=== PATIENT | female | born 2000 ===

== ENCOUNTER 2020-10-02 10:28 | Outpatient (REF) | payer OTHER, SELFPAY ==
--- NOTE | ~2020-10-02 | XR_ITS ---
EXAMINATION: XR CERVICAL SPINE CLINICAL INFORMATION: Chronic neck pain COMPARISON: None TECHNIQUE: 3 views of the cervical spine were obtained. FINDINGS: There is mild straightening of cervical lordosis. The vertebral heights, alignment and disc heights are normal. The neural foramina are patent bilaterally. No visible acute fracture, dislocation or lytic process seen. The prevertebral soft tissues are normal. XR/XR cervical spine 4V IMPRESSION: Unremarkable cervical spine exam.
== END 2020-10-02 10:29 | disposition home or self-care (01) ==
LOC: HO.XRAY 10:28
PROVIDERS: Visit Provider Psychiatry & Neurology Neurology
DX: M54.2 Cervicalgia (principal)
CPT/HCPCS: 72050

== ENCOUNTER 2021-05-19 11:10 | Emergency (ER) | payer OTHER, SELFPAY ==
--- NOTE | ~2021-05-19 | XR_ITS ---
EXAMINATION: 1. Radiographs left elbow 2. Radiographs left hand CLINICAL INFORMATION: Pain COMPARISON: None TECHNIQUE: 3 views of the left elbow and 4 views of the left hand were obtained. FINDINGS: Left elbow: No fracture or dislocation of the left elbow. No joint effusion. No focal soft tissue swelling. No appreciable degenerative changes. No radiopaque foreign body. Left hand: Visualized portion of the distal radius and ulna demonstrate no fracture. Carpal rows are maintained. No carpal bone fracture. No metacarpal or phalangeal fracture. No appreciable degenerative changes of the left hand. No focal soft tissue swelling. No radiopaque foreign body. XR/XR hand wrist LT IMPRESSION: Unremarkable radiographs of the left elbow and left hand.
--- NOTE | ~2021-05-19 | XR_ITS ---
EXAMINATION: 1. Radiographs left elbow 2. Radiographs left hand CLINICAL INFORMATION: Pain COMPARISON: None TECHNIQUE: 3 views of the left elbow and 4 views of the left hand were obtained. FINDINGS: Left elbow: No fracture or dislocation of the left elbow. No joint effusion. No focal soft tissue swelling. No appreciable degenerative changes. No radiopaque foreign body. Left hand: Visualized portion of the distal radius and ulna demonstrate no fracture. Carpal rows are maintained. No carpal bone fracture. No metacarpal or phalangeal fracture. No appreciable degenerative changes of the left hand. No focal soft tissue swelling. No radiopaque foreign body. XR/XR elbow LT 2V IMPRESSION: Unremarkable radiographs of the left elbow and left hand.
[2021-05-19 11:21] VITALS: BP 114/64; PULSE 76; RESP 16; TEMP 36.5; BMI 21.2
--- NOTE | 2021-05-19 12:15 | ED.EXTPRO ---
HPI - Extremity Problem General Chief complaint: Extremity Problem Stated complaint: Wrist pain Time Seen by Provider: 05/19/21 12:08 Source: patient Mode of arrival: ambulatory Limitations: no limitations History of Present Illness HPI Narrative: 20-year-old female came in for evaluation of left wrist pain for the past 3 months. 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 Patient describes the pain as electrical pain shooting down to the left hand. Related Data Allergies Allergy/AdvReac Type Severity Reaction Status Date / Time No Known Allergies Allergy Verified 05/19/21 11:28 Review of Systems Review of Systems: All other systems are reviewed and are negative Constitutional: Reports as per HPI and Reports no additional constitutional complaints Eyes: Reports as per HPI and Reports no additional eye complaints Reports system reviewed and no additional complaints, except as documented Cardiovascular: Reports as per HPI and Reports no additional cardiovascular complaints Respiratory: Reports as per HPI and Reports no additional respiratory complaints Gastrointestinal: Reports as per HPI and Reports no additional gastrointestinal complaints Genitourinary: Reports no additional female genitourinary complaints Musculoskeletal: Reports no additional musculoskeletal complaints Skin/Breast: Reports system reviewed and no additional complaints, except as docu Psychiatric: Reports no additional psychiatric complaints Endocrine: Reports no additional endocrine complaints Hematologic/Lymphatic: Reports no additional hematologic/lymphatic complaints Allergic/Immunologic: Reports no additional allergic/immunologic complaints Reports system reviewed and no additional complaints, except as documented and Reports Abnormal speech present [facility] Past Medical History Medical History Seizure Social History Social History Advance Directives: No Advance Directives Information Provided: No Patient : No Physical Exam Vital Signs: Vital Signs: Last Vital Signs Temp 97.7 F 05/19/21 11:21 Pulse 76 05/19/21 11:21 Resp 16 05/19/21 11:21 BP 114/64 05/19/21 11:21 Body Mass Index 21.2 Vital signs have been reviewed as appeared to be correct. Blood pressure normal. Heart rate normal. Respiration rate normal. Temperature normal. Oxygen saturation normal. Appearance: Alert. Oriented X3. No acute distress. Head: Normal external exam. Normocephalic. Atraumatic. No Doherty signs noted. No raccoon eyes noted Eyes: PERRLA. EOMI. Conjunctiva and sclera normal. Eyelids normal. ENT: TM's Normal. Pharynx normal. Uvula midline. Moist mucous membranes. No trismus noted. No drooling noted. No muffled voice noted. Neck: Normal inspection. Neck supple. FROM. No adenopathy. Thyroid Normal. No meningeal signs. No neck mass noted. CVS: Normal heart rate and rhythm. Heart sound normal. No murmurs noted. Pulses normal throughout. Respiratory: No respiratory distress. Painless inspiration. Breath sounds normal. No wheezes/rales/rhonchi noted. Chest nontender. No accessory muscle usage noted or decreased air movement noted. Abdomen: Soft and nontender. Bowel sounds normal in all 4 quadrants. No distention noted. No organomegaly noted. No visible injury noted. Back: No CVA tenderness. Full range of motion noted. Skin: Skin warm and dry. Normal skin color. Normal skin turgor. No rashes/lesions/lacerations noted. Extremities: Right hand/right wrist exam: No deformity, no step-off, the focal tenderness over medial aspect of the left wrist, increased pain with over extending the left rest, worsening by tapping on the wrist causing left trickle shooting pain to the hand. Neuro: Oriented X 3. Cranial nerve exam: II-XII are grossly intact No motor deficit. No sensory deficit. Reflexes normal. Course Course Course Narrative: Assessment and plan. Left wrist pain likely left wrist carpal tunnel syndrome. rest, wrist brace, NSAIDs, follow up with Ortho. MDM - Extremity (Nontraumatic) Imaging Data Left elbow/left hand/left wrist x-ray: Radiologist's impression: Unremarkable radiographs of the left elbow and left hand. Discharge Plan Discharge Clinical Impression: Carpal tunnel syndrome Qualifiers: Laterality: left Qualified Code(s): G56.02 - Carpal tunnel syndrome, left upper limb Patient Disposition: Home, Self-Care Instructions: Carpal Tunnel Surgery (DC) Referrals: Jessica Ball MD [Physician] - 2 days
== END 2021-05-19 13:08 | disposition home or self-care (01) ==
PROVIDERS: Emergency Provider Emergency Medicine; PCP Pediatrics
DX: M25.532 Pain in left wrist (principal); G56.02 Carpal tunnel syndrome, left upper limb; Z79.899 Other long term (current) drug therapy
CPT/HCPCS: 73070; 73110; 73130; 99283

== ENCOUNTER → 2021-07-29 12:29 | Outpatient (BNVA) | payer MEDICAID, SELFPAY | PROVIDERS: PCP Pediatrics; Visit Provider Orthopaedic Surgery | DX: G56.02 Carpal tunnel syndrome, left upper limb (principal); M79.642 Pain in left hand | CPT/HCPCS: 99202 ==

== ENCOUNTER 2021-09-26 08:33 | Outpatient (REF) | payer BC, SELFPAY ==
[2021-09-26 11:35] LABS: Hematocrit 37.7 % (37.0-47.0); Hemoglobin 12.2 g/dl (12.0-16.0); Mean Corpuscular HGB Conc 32.4 g/dl (31.0-35.0); Mean Corpuscular Hemoglobin 31.1 pg (27.0-33.0); Mean Corpuscular Volume 96.2 fL (80.0-98.0); Mean Platelet Volume 11.3 fL (9.4-12.3); Platelet Count 327 X10*3/uL (160-400); Red Blood Count 3.92 X10*6/uL (4.20-5.50); Red Cell Distribution Width 12.6 % (11.0-16.0); White Blood Count 9.2 X10*3/uL (4.8-10.8)
[2021-09-26 12:11] LABS: TSH reflex Free T4 1.66 uIU/mL (0.32-4.0)
[2021-09-26 12:15] LABS: Alanine Aminotransferase 13 U/L (0-31); Alkaline Phosphatase 89 U/L (39-117); Anion Gap 14 (12-20); Aspartate Amino Transferase 17 U/L (5-31); Bilirubin Total 0.3 mg/dL (0.0-1.0); Blood Urea Nitrogen 9 mg/dL (9-16); Calcium 9.3 mg/dL (8.4-10.2); Carbon Dioxide 25 mmol/L (22-29); Chloride 106 mmol/L (96-108); Cholesterol 121 mg/dL; Estimated Glomerular Filt Rate > 60; Glucose Fasting 85 mg/dL (60-99); HDL Cholesterol 57 mg/dL; LDL Cholesterol Calculated 55 mg/dl; Potassium 4.7 mmol/L (3.3-5.1); Sodium 140 mmol/L (135-145); Total Protein 6.4 g/dL (6.5-8.0); Triglycerides 48 mg/dL
[2021-09-26 12:29] LABS: Vitamin B12 311 pg/mL (200-900)
== END 2021-09-26 08:34 | disposition home or self-care (01) ==
LOC: HO.WFDLDS 08:33
PROVIDERS: Visit Provider Hospitalist
DX: Z00.00 Encounter for general adult medical examination without abnormal findings (principal); Z86.2 Personal history of diseases of the blood and blood-forming organs and certain disorders involving the immune mechanism
CPT/HCPCS: 36415; 80053; 80061; 82607; 82746; 84443; 85027

== ENCOUNTER 2021-12-03 11:15 | Outpatient (RCR) | payer BC, SELFPAY ==
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
--- NOTE | 2021-11-20 14:48 | PC.NURSE ---
Case opened in treatment team
--- NOTE | 2021-11-24 11:14 | P.PNPSP_ITS ---
Subjective Subjective Date of Service: 11/24/21 Reason For Visit: bipolar II Guardianship: No Medical Problems Affecting Mental Status: No Interim History: Describes mood as okay , states it gets better as the day goes on . No SI/HI/SIB repored, no safety concerns. States current medication regimen appears to be helping, has had recent increase in duloxetine dose, approximately 3 to 4 weeks ago. Would prefer to wait before increasing any further. Medication Compliance: Yes Side effects from medications: No Attending Groups: Yes Review of Systems Acute medical concerns: No Review of Systems Review of Systems Yes all other systems are reviewed and are negative Constitutional: Reports no additional constitutional complaints Mental Status Exam Mental Status Exam Narrative: NAD Patient Appearance: Well Grooomed and Appropriate Patient Orientation: Person, Place, Time and Situation Level of Consciousness: Awake, Appropriate and Alert Patient Behavior: Appropriate, Cooperative and Good Eye Contact Mood Description: Appropriate Affect Description: Depressed and Anxious Patient Cognition Impaired: No Ability to Follow Directions: Good Speech Pattern: Clear, Appropriate, Coherent and Soft-Spoken Memory Description: Intact Hallucinations: None Delusions: Not Present Thought Process: Intact Thought Content: positive for Intact Depressive Symptoms: Increased Anxiety, Loss of Int. in Activity, Hopelessness, Unhappiness, Increased Fatigue, Thoughts of /Suicide and Difficulty Concentrating Judgement: Fair Assessment & Plan Assessment & Plan (1) Bipolar II disorder: Status: Acute Code(s): F31.81 - Bipolar II disorder Assessment and Plan: Describes mood as okay . No SI/HI/SIB reported. States has difficulty with the season, as summer is coming on, but overall feels she is okay . Feels lamictal is helping. Satisfied with current dose for now. (2) Depression with anxiety: Status: Acute Code(s): F41.8 - Other specified anxiety disorders Assessment and Plan: Discussed cymbalta dose. Had increase 3 to 4 weeks ago. Says she continues with a level of dep/anxiety, but would rather wait before another dose increase, as my body adjusts . (3) Generalized anxiety disorder: Status: Acute Code(s): F41.1 - Generalized anxiety disorder Assessment and Plan: Overall feeling less anxious, although still present. Plan 1. Continue with current PHP plan of care. 2. Continue with current medications as prescribed. 3. Follow-up as per protocol. Patient educated on: diagnosis, medication risk/benefits and therapeutic strategies Informed Consent: understands Reason for contiued partial hosp. stay Substantial Risk for: harm to self, inability to function and med/psych decomp ensation Certification I certify that partial hospital treatment is medically necessary due to the symptoms and problems resulting from the patient's mental illness and the failure to treat the patient at the partial hospital level of care would likely result in the patient requiring inpatient psychiatric care which could not be prevented at a less intensive level of care. I spent minutes with the patient and/or on the patient floor today, greater than?50% of which was spent counseling/coordinating care. Discharge Plan Discharge Attending provider: Shan Camp Medications: No Action lamotrigine [Lamictal] 100 mg Tablet 100 mg PO DAILY 0RF Rx Instructions: Take at bedtime lamotrigine [Lamictal] 200 mg Tablet 200 mg PO DAILY 0RF Rx Instructions: Take every morning duloxetine [Cymbalta] 20 mg Capsule,Delayed Release(Dr/Ec) 40 mg PO BEDTIME 0RF duloxetine [Cymbalta] 20 mg Capsule,Delayed Release(Dr/Ec) 20 mg PO DAILY 0RF Rx Instructions: Take every morning Telehealth Telehealth Location of provider rendering services: practice address Location of patient: address on file Patient Identification confirmed using: Name, : Yes Telehealth method: video Patient verbally consented to treatment: Yes Patient verbally consented to billing insurance company: Yes Patient informed of any privacy concerns related to visit: Yes Minutes spent on Phone/Video with Pt.: 15
[2021-11-27 08:30] VITALS: BMI 20.2
--- NOTE | 2021-11-27 15:09 | P.PNPSP_ITS ---
Subjective Subjective Date of Service: 11/27/21 Reason For Visit: bipolar II Guardianship: No Medical Problems Affecting Mental Status: No Interim History: States ?I am doing okay today?. Coptinues with dysphoric mood and anxiety, although improving. States working on taking medications consistently daily, and with food. No SI/HI/SIB reported, no safety concerns at this time. Medication Compliance: Yes Side effects from medications: No Attending Groups: Yes Review of Systems Acute medical concerns: No Medical Review of Systems: unchanged Review of Systems Review of Systems Yes all other systems are reviewed and are negative Constitutional: Reports no additional constitutional complaints Mental Status Exam Mental Status Exam Narrative: NAD Patient Appearance: Well Grooomed and Appropriate Patient Orientation: Person, Place, Time and Situation Level of Consciousness: Awake, Appropriate and Alert Patient Behavior: Appropriate, Cooperative and Good Eye Contact Mood Description: Appropriate Affect Description: Depressed Patient Cognition Impaired: No Ability to Follow Directions: Good Speech Pattern: Clear, Appropriate, Coherent and Soft-Spoken Memory Description: Intact Hallucinations: None Delusions: Not Present Thought Process: Intact Thought Content: positive for Intact Depressive Symptoms: Increased Anxiety, Loss of Int. in Activity, Unhappiness, Increased Fatigue and Difficulty Concentrating Judgement: Fair Assessment & Plan Assessment & Plan (1) Generalized anxiety disorder: Status: Acute Code(s): F41.1 - Generalized anxiety disorder Assessment and Plan: Reports overall less anxiety. Continues to take medications as prescribed. (2) Bipolar II disorder: Status: Acute Code(s): F31.81 - Bipolar II disorder Assessment and Plan: Reports continues with dysphoric mood, although improving. States she is working consistently and taking medications daily at appropriate times, and with foods. Reports she is looking for therapist. Informed her that her clinician here could provide information. I also provided her with information regarding psychology doctor [facility], and she states she will begin looking there. She was also encouraged to reach out to her insurance company for providers in the area that except her insurance. She stated that she would do this. No SI/HI/SIB reported, no safety concern at this time. Does not feel she needs any type of medication changes at this time. Plan 1. Continue with current PHP plan of care. 2. Continue with current medication regimen as prescribed by outpatient provider. 3. Follow-up as per protocol. Patient educated on: diagnosis, medication risk/benefits and therapeutic strategies Informed Consent: understands Reason for contiued partial hosp. stay Substantial Risk for: harm to self, inability to function and med/psych decompensation Certification I certify that partial hospital treatment is medically necessary due to the symptoms and problems resulting from the patient's mental illness and the fail ure to treat the patient at the partial hospital level of care would likely result in the patient requiring inpatient psychiatric care which could not be prevented at a less intensive level of care. I spent minutes with the patient and/or on the patient floor today, greater than?50% of which was spent counseling/coordinating care. Discharge Plan Discharge Attending provider: Shan Camp Medications: No Action lamotrigine [Lamictal] 100 mg Tablet 100 mg PO DAILY 0RF Rx Instructions: Take at bedtime lamotrigine [Lamictal] 200 mg Tablet 200 mg PO DAILY 0RF Rx Instructions: Take every morning duloxetine [Cymbalta] 20 mg Capsule,Delayed Release(Dr/Ec) 40 mg PO BEDTIME 0RF duloxetine [Cymbalta] 20 mg Capsule,Delayed Release(Dr/Ec) 20 mg PO DAILY 0RF Rx Instructions: Take every morning Telehealth Telehealth Location of provider rendering services: practice address Location of patient: address on file Patient Identification confirmed using: Name, : Yes Telehealth method: video Patient verbally consented to treatment: Yes Patient verbally consented to billing insurance company: Yes Patient informed of any privacy concerns related to visit: Yes Minutes spent on Phone/Video with Pt.: 15
--- NOTE | 2021-11-28 15:45 | PC.ADMIT ---
Late admission note for 11/20/2021 21 year old patient admitted to [facility] on 11/20/2021. Patient referred by her PCP, Bruna Sewell DNP. Patient reported increased depression and anxiety over the last month. States i've been too depressed for too long Patient has lost motivation for personal care, having nightmares and SI without plan or intent. Patient denies hx of suicidal attempts, does report self harming behaviors hx of cutting. No hx of in-patient hospitalizations. Patient denies substance abuse does report daily use of marijuana at night for sleep and pain. Patient is cooperative during nursing assessment and verbally agrees to complete assessment via telehealth. Patient denies SI and HI with no plan or intent. Medications reconciled with pharmacy and patient. Medication teaching done, patient verbalizes understanding.
--- NOTE | 2021-12-03 12:08 | HO.PHPPROGNO ---
Subjective Subjective Date of Service: 12/03/21 Reason For Visit: bipolar II Guardianship: No Medical Problems Affecting Mental Status: No Interim History: States I'm okay, I'm tired . Feels less depressed, less anxious. No SI/HI/SIB reported, no safety concerns. Has found PHP helpful. Looking forward to an upcoming vacation. Somewhat anxious about finding a therapist, has been working with [facility] clinician to locate one that accepts her insurance. Medication Compliance: No Side effects from medications: No Attending Groups: Yes Review of Systems Acute medical concerns: No Medical Review of Systems: unchanged Review of Systems Review of Systems Yes all other systems are reviewed and are negative Constitutional: Reports no additional constitutional complaints Mental Status Exam Mental Status Exam Narrative: NAD Patient Appearance: Well Grooomed and Appropriate Patient Orientation: Person, Place, Time and Situation Level of Consciousness: Awake, Appropriate and Alert Patient Behavior: Appropriate, Cooperative and Good Eye Contact Mood Description: Calm and Appropriate Affect Description: Calm and Appropriate Patient Cognition Impaired: No Ability to Follow Directions: Good Speech Pattern: Clear, Appropriate, Coherent and Soft-Spoken Memory Description: Intact Hallucinations: None Delusions: Not Present Thought Process: Intact Thought Content: positive for Intact Depressive Symptoms: Increased Fatigue and Difficulty Concentrating Judgement: Fair Diagnostics Vital Signs (24Hr): BMI result Body Mass Index 20.2 Assessment & Plan Assessment & Plan (1) Generalized anxiety disorder: Status: Acute Code(s): F41.1 - Generalized anxiety disorder Assessment and Plan: States I'm okay, I'm tired . Feels less depressed, less anxious. No SI/HI/SIB reported, no safety concerns. Has found PHP helpful. Looking forward to an upcoming vacation. Reports feeling somewhat anxious about finding a therapist, has been working with [facility] clinician to locate one that accepts her insurance. Reports that she plans to resume school and some type of work after vacation. Expressed concern regarding ability to pay attention / concentrate. States that she has been diagnosed with ADD in the past, would like to discuss medications. We reviewed several medications, including Wellbutrin, stimulants, Strattera. I did advise her that due to her seizures, she would really not be suitable for Wellbutrin or stimulants at this time. I did suggest that she follow up with her outpatient provider regarding possible trial of Strattera in the future. She stated that she would read about medication and discuss it with her primary care provider, as they prescribe her medications at this time. She was able to express hope for the future, and feels she has gained some skills while here. (2) Bipolar II disorder: Status: Acute Code(s): F31.81 - Bipolar II disorder Plan 1. Patient appears stable for discharge from [facility] at this time. 2. Patient to continue current medications as prescribed by her primary care provider. Patient educated on: diagnosis, medication risk/benefits and therapeutic strategies Informed Consent: understands Reason for contiued partial hosp. stay Substantial Risk for: stable for discharge Certification I certify that partial hospital treatment is medically necessary due to the symptoms and problems resulting from the patient's mental illness and the failure to treat the patient at the partial hospital level of care would likely result in the patient requiring inpatient psychiatric care which could not be prevented at a less intensive level of care. I spent minutes with the patient and/or on the patient floor today, greater than?50% of which was spent counseling/coordinating care. Discharge Plan Discharge Attending provider: Shan Camp Medications: No Action lamotrigine [Lamictal] 100 mg Tablet 100 mg PO DAILY 0RF Rx Instructions: Take at bedtime lamotrigine [Lamictal] 200 mg Tablet 200 mg PO DAILY 0RF Rx Instructions: Take every morning duloxetine [Cymbalta] 20 mg Capsule,Delayed Release(Dr/Ec) 40 mg PO BEDTIME 0RF duloxetine [Cymbalta] 20 mg Capsule,Delayed Release(Dr/Ec) 20 mg PO DAILY 0RF Rx Instructions: Take every morning Stand Alone Forms: Patient Portal Discharge page Telehealth Telehealth Location of provider rendering services: practice address Location of patient: address on file Patient Identification confirmed using: Name, : Yes Telehealth method: video Patient verbally consented to treatment: Yes Patient verbally consented to billing insurance company: Yes Patient informed of any privacy concerns related to visit: Yes Minutes spent on Phone/Video with Pt.: 15
--- NOTE | 2021-12-03 13:50 | PC.NURSE ---
Patient is scheduled to discharge from [facility] today. Patient reports she does not know how she feels about discharge however she is going away on vacation next week. Patient denied SI or any safety concerns. Reviewed patient medications with patient. Medication education provided. Patient reports taking medications as prescribed.
== END 2021-12-03 23:59 | disposition home or self-care (01) ==
LOC: HO.PHPA 11:15
PROVIDERS: Visit Provider Psychiatry & Neurology Psychiatry
DX: F31.81 Bipolar II disorder (principal); F41.1 Generalized anxiety disorder; F41.8 Other specified anxiety disorders; Z79.899 Other long term (current) drug therapy
CPT/HCPCS: 90791; 90853

== ENCOUNTER 2022-10-09 09:56 | Outpatient (REF) | payer BC, SELFPAY ==
[2022-10-09 12:02] LABS: Hematocrit 39.6 % (37.0-47.0); Hemoglobin 13.4 g/dl (12.0-16.0); Mean Corpuscular HGB Conc 33.8 g/dl (31.0-35.0); Mean Corpuscular Hemoglobin 31.2 pg (27.0-33.0); Mean Corpuscular Volume 92.1 fL (80.0-98.0); Mean Platelet Volume 11.9 fL (9.4-12.3); Platelet Count 296 X10*3/uL (160-400); Red Cell Distribution Width 12.2 % (11.0-16.0); White Blood Count 5.7 X10*3/uL (4.8-10.8)
[2022-10-09 12:59] LABS: Alanine Aminotransferase 9 U/L (0-31); Albumin Level 4.5 g/dL (3.5-5.0); Alkaline Phosphatase 82 U/L (39-117); Anion Gap 12 (12-20); Aspartate Amino Transferase 14 U/L (5-31); Bilirubin Total 0.8 mg/dL (0.0-1.0); Blood Urea Nitrogen 8 mg/dL (9-16); Calcium 9.3 mg/dL (8.4-10.2); Carbon Dioxide 24 mmol/L (22-29); Chloride 108 mmol/L (96-108); Estimated Glomerular Filt Rate > 60; Glucose Fasting 80 mg/dL (60-99); Potassium 4.3 mmol/L (3.3-5.1); Sodium 140 mmol/L (135-145); Total Protein 6.9 g/dL (6.5-8.0)
[2022-10-09 13:01] LABS: TSH reflex Free T4 1.36 uIU/mL (0.32-4.0)
== END 2022-10-09 09:57 | disposition home or self-care (01) ==
LOC: HO.WFDLDS 09:56
PROVIDERS: Visit Provider Hospitalist
DX: R63.6 Underweight (principal); F31.81 Bipolar II disorder; R56.9 Unspecified convulsions; Z86.2 Personal history of diseases of the blood and blood-forming organs and certain disorders involving the immune mechanism
CPT/HCPCS: 36415; 80053; 84443; 85027

== ENCOUNTER 2023-11-09 16:47 | Outpatient (AMB) | payer BC, SELFPAY ==
[2023-11-09 16:53] VITALS: BP 108/68; BMI 19.1
--- NOTE | 2023-11-09 16:53 | MHC.PC.OV ---
Vital Signs 11/09/23 16:53 Height 5 ft 3 in Weight 108 lb BMI 19.1 BP 108/68 Blood Pressure Location Lt brachial Position Sitting Intake Visit Reasons: TC SV/iron deficiency Cassandra Consultant Required: No Accompanied by: Self / Same As Patient Allergies No Known Allergies Allergy (Verified 11/09/23 17:07) Medication List - Last Reconciled 11/09/23 by Danae Beltran MD duloxetine 20 mg PO TID zonisamide 100 mg PO BID Tobacco use date assessed: 11/09/23 Dental Screening Dental Screen Date: 11/09/23 Did you have a dental visit in the last 12 months?: Yes Did you have a dental problem in the last 6 months where you did not have access to dental care?: No Was dental information given to patient?: Patient has dentist HPI HPI Comments History of Present Illness Details This is a 23-year-old female with seizure disorder that complains of a chronic cough that has been present for about 4 weeks after she had a cold. She was wheezing when she had the cold but not anymore. The cough is productive with green sputum as per patient. Lungs are clear. Chest x-ray will be order along with pulmonary function test and referral to pulmonology. Seizure disorder is follow by [facility]. [facility] Medical History (Updated 11/09/23 @ 17:29 by Danae Beltran MD) Bipolar II disorder Epilepsy Seizure Surgical History Hx of appendectomy Family History Sister Asthma Mental disorder Father Mental disorder Mother Mental disorder Social History Household Members: Family Household Members Other:: dad and stepmom Housing: House Alcohol intake: former Patient Tobacco Use Status: Never used Tobacco e-Cigarette/Vaping Use: Never Used Second Hand Smoke Exposure: No service: No Current occupational status: employed Current occupation: rt hand/receptionist telephone operator Cognitive needs: No Hearing needs: No Vision needs: Yes Questionnaire PHQ-9 Over the last 2 weeks, how often have you been bothered by any of the following problems? 1. Little interest or pleasure in doing things: not at all 2. Feeling down, depressed, or hopeless: not at all 3. Trouble falling or staying asleep, or sleeping too much: not at all 4. Feeling tired or having little energy: not at all 5. Poor appetite or overeating: not at all 6. Feeling bad about yourself - or that you are a failure or have let yourself or your family down: not at all 7. Trouble concentrating on things, such as reading the newspaper or watching television: not at all 8. Moving or speaking so slowly that other people could have noticed. Or the opposite - being so fidgety or restless that you have been moving around a lot more than usual: not at all 9. Thoughts that you would be better off or of hurting yourself in some way: not at all Total score: 0 Depression Screening Interpretation: Negative Depression Screening Done: Yes 64819 - PHQ-9 Billing: Yes Source: Developed by Drs. Osei Suarez, Sheeba Walters, Jeovanny Fournier and colleagues, with an educational precious from [employer]. Thrive Questionnaire Date Thrive assessed: 11/09/23 I am a: Patient What is your living situation today?: I have a steady place to live Within the past 12 months, did the food you bought not last and you didn't have the money to get more?: Never true Within the past 12 months, did you worry whether your food would run out before you got money to buy more?: Never true Do you have trouble paying for medicines?: No Do you have trouble getting transportation to medical appointments?: No Do you have trouble paying your heating and electricity bill?: No Do you have trouble taking care of your child, family member or friend?: No Do you have trouble with day-to-day activities such as bathing, preparing meals, shopping, managing finances, etc.?: No Are you currently unemployed and looking for a job?: No Are you interested in more education?: No Please select the resources that you would like help with: None Currently or been in a relationship where the following occur: no concerns reported THRIVE Score: 0 AUDIT C Alcohol Use Questionnaire (AUDIT-C) 1. How often do you have a drink containing alcohol?: Never Total Score: 0 Score Reviewed/Action Taken: No AMERICA-7 AMB Questionnaire AMERICA-7 Date AMERICA - 7 assessed: 11/09/23 Feeling nervous, anxious, or on edge: 0 = Not at all Not being able to stop or control worryin = Not at all Worrying too much about different things: 0 = Not at all Trouble relaxin = Not at all Being so restless that it is hard to sit still: 0 = Not at all Becoming easily annoyed or irritable: 0 = Not at all Feeling afraid as if something awful might happen: 0 = Not at all Total AMERICA-7 score (0-4 normal; 5-9 mild; 10-14 moderate; 15-21 severe): 0 Source: Developed by Drs. Osei Suarez, Sheeba Walters, Jeovanny Fournier and colleagues, with an educational precious from [employer]. AMERICA-7 Assessment Billing AMERICA-7 Assessment Tool: AMERICA-7 Assessment 94193 Review of Systems Const All systems reviewed & are unremarkable except as noted in HPI and below Card Denies chest pain at rest, Denies chest pain with activity, Denies edema, Denies irregular heart rhythm, Denies claudication, Denies dyspnea, Denies dyspnea on exertion, Denies orthopnea, Denies paroxysmal nocturnal dyspnea and Denies slow heart rate Resp Reports cough, Reports excessive phlegm production, Denies dyspnea, Denies dyspnea on exertion and Reports wheezing GI Denies abdominal pain, Denies change in bowel habits, Denies excessive flatus, Denies nausea and Denies vomiting Denies urinary incontinence, Denies urinary hesitancy and Denies urinary urgency Aller/Immun Reports wheezing Physical exam (Primary Care) Vital Signs: Last Vital Signs BP 108/68 11/09/23 16:53 BMI result Body Mass Index 19.1 Tobacco/Smoking Status: Tobacco use Status Tobacco use date assessed 11/09/23 11/09/23 16:59 Patient Tobacco Use Status Never used Tobacco 11/09/23 16:59 Tobacco use type 11/09/23 16:59 e-Cigarette/Vaping Use Never Used 11/09/23 16:59 PHQ-9: PHQ-9 Score PHQ-9: Total score 0 11/09/23 16:59 Depression Screening Interpretation: Negative Thrive Assessment: Date of Thrive Assessment Date Thrive assessed 11/09/23 11/09/23 16:59 Currently or been in a relationship where the following occur: no concerns reported Resp Effort & Inspection: normal respiratory effort Auscultation: clear to auscultation bilaterally Cardio Jugular venous distension: no JVD Rate: regular rate Rhythm: regular rhythm Heart sounds: S1 normal heart sound present and S2 normal heart sound present Extrem General: Yes full ROM Assessment and Plan Assessment & Plan (1) Seizure: Code(s): R56.9 - Unspecified convulsions Plan: Continue zonisamide. Follow-up with Neurology. (2) Chronic cough: Code(s): R05.3 - Chronic cough Plan: Chest x-ray ordered. Pulmonary function test order. Referred to pulmonology. Orders: Orders Syphilis Screen Today Danae Beltran MD Z11.3 - Encounter for screening for infections with a predominantly sexual mode of transmission HIV Ab/Ag Today Danae Beltran MD Z11.3 - Encounter for screening for infections with a predominantly sexual mode of transmission CT NG by PCR Today Danae Beltran MD Z11.3 - Encounter for screening for infections with a predominantly sexual mode of transmission XR chest 2V Today Danae Beltran MD R05.3 - Chronic cough PFT pulmonary function test Today Danae Beltran MD R05.3 - Chronic cough Referrals Pulmonology Referral Danae Beltran MD R05.3 - Chronic cough Medications: Changed From zonisamide 100 mg PO TID 90 caps 0RF R56.9 - Unspecified convulsions To zonisamide 100 mg PO BID R56.9 - Unspecified convulsions Bruna Sewell NP Coding Level of Care Code Est Pt Level 3 (43782) Diagnoses Seizure R56.9 Chronic cough R05.3 Additional Codes AMERICA-7 Assessment Billing - AMERICA-7 Assessment Tool: AMERICA-7 Assessment 44872 ([id number]) Time Spent (min) 19
== END 2023-11-09 17:21 | disposition home or self-care (01) ==
PROVIDERS: PCP Internal Medicine; Visit Provider Internal Medicine
DX: R56.9 Unspecified convulsions (principal); R05.3 Chronic cough
CPT/HCPCS: 99213

== ENCOUNTER 2023-11-11 11:49 | Outpatient (REF) | payer BC, SELFPAY ==
[2023-11-11 15:29] LABS: CT PCR NOT DETECTED (Not Detect.); NG PCR NOT DETECTED (Not Detect.)
[2023-11-12 08:25] LABS: Syphilis Screen Nonreactive (Nonreactive)
[2023-11-12 08:26] LABS: HIV AB/AG Nonreactive (Nonreactive); HIV Num 1 0.04 S/CO (0.00-0.99)
== END 2023-11-11 11:50 | disposition home or self-care (01) ==
LOC: HO.LAB 11:49
PROVIDERS: PCP Internal Medicine; Visit Provider Internal Medicine
DX: Z11.4 Encounter for screening for human immunodeficiency virus [HIV] (principal); Z20.2 Contact with and (suspected) exposure to infections with a predominantly sexual mode of transmission
CPT/HCPCS: 0353U; 86780; 87389

== ENCOUNTER 2024-02-29 10:48 | Outpatient (REF) | payer BC, SELFPAY ==
[2024-02-29 11:40] LABS: Appearance Urine Cloudy; Color Urine Yellow; Glucose Urine UA Negative (Negative); Leukocyte Esterase Urine Moderate (2+) (Negative); Nitrite Urine Negative (Negative); PH >= 9.0 (5.0-9.0); Specific Gravity - Urine 1.015 (1.005-1.025); UMIC TRIGGER UACC YES; Urine Blood Moderate (2+) (Negative); Urine Ketones Negative (Negative); Urine Protein 100 (2+) mg/dL (Neg-Trace)
[2024-02-29 11:42] LABS: Bacteria Urine None Seen (None Seen); Hyaline Casts Urine 0-2 /LPF (0-2); RBC Urine >20 /HPF (0-2); Squamous Epithelial Cell Urine 0-2 /HPF (0-2); UACC Culture Trigger YES; WBC Urine >50 /HPF (0-5)
== END 2024-02-29 10:49 | disposition home or self-care (01) ==
LOC: HO.LAB 10:48
PROVIDERS: PCP Internal Medicine; Visit Provider Internal Medicine
DX: N39.0 Urinary tract infection, site not specified (principal)
CPT/HCPCS: 81001; 87086

== ENCOUNTER 2024-04-27 13:11 | Outpatient (AMB) | payer BC, SELFPAY ==
[2024-04-27 13:15] VITALS: BP 108/60; BMI 18.2
--- NOTE | 2024-04-27 13:15 | A.OFFPC_ITS ---
Vital Signs 04/27/24 13:15 Height 5 ft 3 in Weight 103 lb BMI 18.2 BP 108/60 Blood Pressure Location Lt brachial Position Sitting Intake Visit Reasons: PE Intake Note: Patient here for a physical exam Senior Hr Manager Required: No Accompanied by: Self / Same As Patient Allergies No Known Allergies Allergy (Verified 04/27/24 13:27) Medication List - Last Reconciled 04/27/24 by Danae Beltran MD duloxetine 20 mg PO TID zonisamide 100 mg PO BID Tobacco use date assessed: 04/27/24 Dental Screening Dental Screen Date: 04/27/24 Did you have a dental visit in the last 12 months?: Yes Did you have a dental problem in the last 6 months where you did not have access to dental care?: No Was dental information given to patient?: Patient has dentist HPI HPI Comments History of Present Illness Details This is a 23-year-old female with seizures and bipolar depression that comes today for her physical exam. Last grand mal seizure was about 4-5 months ago and she does follows with Neurology. On duloxetine for bipolar depression which she would like it to increase. She has no suicidal thoughts but would like counseling. No acute complaints. Wants to be tested for STDs. Had a vaginal candidiasis recently which was treated with Monistat [id number]. [facility] Medical History (Updated 04/27/24 @ 13:48 by Danae Beltran MD) Bipolar II disorder Epilepsy Seizure Surgical History Hx of appendectomy Family History (Updated 04/27/24 @ 13:31 by Danae Beltran MD) Sister Asthma Mental disorder Father Mental disorder Atrial fibrillation Mother Mental disorder Social History Household Members: Family Household Members Other:: dad and stepmom Housing: House Alcohol intake: former Patient Tobacco Use Status: Never used Tobacco e-Cigarette/Vaping Use: Never Used Second Hand Smoke Exposure: No service: No Current occupational status: employed Current occupation: rt hand/spa receptionist Current occupational exposures/hazards: No Cognitive needs: No Hearing needs: No Vision needs: Yes Questionnaire PHQ-9 Over the last 2 weeks, how often have you been bothered by any of the following problems? 1. Little interest or pleasure in doing things: more than half the days 2. Feeling down, depressed, or hopeless: several days 3. Trouble falling or staying asleep, or sleeping too much: more than half the days 4. Feeling tired or having little energy: nearly every day 5. Poor appetite or overeating: nearly every day 6. Feeling bad about yourself - or that you are a failure or have let yourself or your family down: more than half the days 7. Trouble concentrating on things, such as reading the newspaper or watching television: nearly every day 8. Moving or speaking so slowly that other people could have noticed. Or the opposite - being so fidgety or restless that you have been moving around a lot more than usual: nearly every day 9. Thoughts that you would be better off or of hurting yourself in some way: not at all Total score: 19 Depression Screening Interpretation: Positive (no suicidal thoughts) Depression Screening Follow-up: Existing condition, Change in Medication and Follow-up Visit Requested Depression Screening Done: Yes 72143 - PHQ-9 Billing: Yes Source: Developed by Drs. Osei Suarez, Sheeba Walters, Jeovanny Fournier and colleagues, with an educational precious from [employer]. Thrive Questionnaire Date Thrive assessed: 04/27/24 I am a: Patient What is your living situation today?: I have a steady place to live Within the past 12 months, did the food you bought not last and you didn't have the money to get more?: I choose not to answer this question Within the past 12 months, did you worry whether your food would run out before you got money to buy more?: I choose not to answer this question Do you have trouble paying for medicines?: Yes Do you have trouble getting transportation to medical appointments?: Yes Do you have trouble paying your heating and electricity bill?: I choose not to answer this question Do you have trouble taking care of your child, family member or friend?: I choose not to answer this question Do you have trouble with day-to-day activities such as bathing, preparing meals, shopping, managing finances, etc.?: I choose not to answer this question Are you currently unemployed and looking for a job?: I choose not to answer this question Are you interested in more education?: No Please select the resources that you would like help with: Paying for medicine Currently or been in a relationship where the following occur: No concerns reported THRIVE Score: 1 AUDIT C Alcohol Use Questionnaire (AUDIT-C) 1. How often do you have a drink containing alcohol?: Monthly or less 2. How many drinks containing alcohol do you have on a typical day when you are drinking?: 1 or 2 3. How often do you have six or more drinks on one occasion?: Never Total Score: 1 Score Reviewed/Action Taken: No AMERICA-7 AMB Questionnaire AMERICA-7 Date AMERICA - 7 assessed: 04/27/24 Feeling nervous, anxious, or on edge: 3 = Nearly every day Not being able to stop or control worryin = Nearly every day Worrying too much about different things: 3 = Nearly every day Trouble relaxin = More than half the days Being so restless that it is hard to sit still: 2 = More than half the days Becoming easily annoyed or irritable: 1 = Several days Feeling afraid as if something awful might happen: 2 = More than half the days Total AMERICA-7 score (0-4 normal; 5-9 mild; 10-14 moderate; 15-21 severe): 16 Source: Developed by Drs. Osei Suarez, Sheeba Walters, Jeovanny Fournier and colleagues, with an educational precious from [employer]. AMERICA-7 Assessment Billing AMERICA-7 Assessment Tool: AMERICA-7 Assessment 19120 Review of Systems Const All systems reviewed & are unremarkable except as noted in HPI and below Card Denies chest pain at rest, Denies chest pain with activity, Denies edema, Denies irregular heart rhythm, Denies claudication, Denies dyspnea, Denies dyspnea on exertion, Denies orthopnea, Denies paroxysmal nocturnal dyspnea and Denies slow heart rate Resp Denies cough, Denies dyspnea and Denies dyspnea on exertion GI Denies abdominal pain, Denies change in bowel habits, Denies excessive flatus, Denies nausea and Denies vomiting Physical exam (Primary Care) Vital Signs: Last Vital Signs BP 108/60 04/27/24 13:15 BMI result Body Mass Index 18.2 Tobacco/Smoking Status: Tobacco use Status Tobacco use date assessed 04/27/24 04/27/24 13:21 Patient Tobacco Use Status Never used Tobacco 04/27/24 13:21 Tobacco use type 11/09/23 17:20 e-Cigarette/Vaping Use Never Used 04/27/24 13:21 PHQ-9: PHQ-9 Score PHQ-9: Total score 19 04/27/24 13:21 Depression Screening Interpretation: Positive (no suicidal thoughts) Depression Screening Follow-up: Existing condition, Change in Medication and Follow-up Visit Requested Thrive Assessment: Date of Thrive Assessment Date Thrive assessed 04/27/24 04/27/24 13:21 Currently or been in a relationship where the following occur: No concerns reported HENMT Head: Yes normal to inspection, Yes normocephalic and Yes atraumatic Ears: external ears normal Eyes General: appearance normal, both eyes and all related structures Eyelids: Yes eyelids normal Conjunctivae: conjunctivae normal Neck Neck: Yes normal visual inspection and Yes supple Resp Effort & Inspection: normal respiratory effort Auscultation: clear to auscultation bilaterally Cardio Jugular venous distension: no JVD Rate: regular rate Rhythm: regular rhythm Heart sounds: S1 normal heart sound present and S2 normal heart sound present GI Inspection: Yes normal to inspection Palpation (GI): Soft to palpation and nontender Auscultation: normal bowel sounds Skin General skin exam: no rashes or lesions noted Neuro General: no focal motor deficits Extrem General: Yes full ROM Psych Appearance: grossly normal Office Procedures Flu Questionnaire Does the patient have a severe egg allergy?: No Immunizations Fluarix Triv [id number] (PF) 45 mcg (15 mcg x 3)/0.5 mL IM syringe Performing Provider: Danae Beltran MD [place] [facility] [place] [facility] Documented (not given) by: RICARDO Mahmood on 04/27/24 13:21 Reason Not Given: Patient Refused Coding Level of Care Code Est Pt Prev Care 18-39y(23255) Diagnoses Physical exam Z00.00 Seizure R56.9 Bipolar depression F31.9 Additional Codes AMERICA-7 Assessment Billing - AMERICA-7 Assessment Tool: AMERICA-7 Assessment 26618 ([id number]) Time Spent (min) 32 Assessment & Plan Assessment & Plan (1) Physical exam: Code(s): Z00.00 - Encounter for general adult medical examination without abnormal findings Category: Medical Plan: Repeat in a year. (2) Seizure: Code(s): R56.9 - Unspecified convulsions Category: Medical Plan: Continue zonisamide. Follow-up with Neurology. (3) Bipolar depression: Code(s): F31.9 - Bipolar disorder, unspecified Category: Medical Plan: Increase duloxetine. Orders: Orders Influenza [id number] Immunization Today Z23 - Encounter for immunization CT NG by PCR Today Z11.3 - Encounter for screening for infections with a predominantly sexual mode of transmission HIV Ab/Ag Today Z11.3 - Encounter for screening for infections with a predominantly sexual mode of transmission Syphilis Screen Today Z11.3 - Encounter for screening for infections with a p redominantly sexual mode of transmission Medications: New duloxetine 60 mg PO DAILY 90 days 90 caps 1RF duloxetine 30 mg PO DAILY 90 days 90 caps 1RF Discontinued duloxetine takes one in the am and two at night Discontinued Reason: Patient Completed Course 20 mg PO TID 90 caps 2RF
== END 2024-04-27 13:44 | disposition home or self-care (01) ==
PROVIDERS: PCP Internal Medicine; Visit Provider Internal Medicine
DX: Z00.00 Encounter for general adult medical examination without abnormal findings (principal); R56.9 Unspecified convulsions; F31.9 Bipolar disorder, unspecified; Z23 Encounter for immunization

== ENCOUNTER 2024-04-27 13:53 | Outpatient (AMB) | payer BC, SELFPAY ==
--- NOTE | 2024-04-27 14:00 | A.OFFVIS_ITS ---
Intake Visit Reasons: UTI/microscopic hematuria Intake Note: New Patient presents for initial visit for uti and microscopic hematuria Urology Medications: none Blood Thinner: none Orthotic Finish Grinding Technician Required: No Accompanied by: Self / Same As Patient Allergies No Known Allergies Allergy (Verified 04/27/24 14:50) Medication List - Last Reconciled 04/27/24 by TIFFANIE Meeks duloxetine 60 mg PO DAILY 90 days duloxetine 30 mg PO DAILY 90 days zonisamide 100 mg PO BID HPI Comments Details: Mary is a 23-year-old female patient of Dr. Lane Beltran. She has a past medical history of bipolar and epilepsy. She presents to the office today as a new patient for ongoing lower urinary tract symptoms. She reports over the last 2 years she has been with intermittent episodes of lower urinary tract symptoms and UTIs. In review of patient's chart it appears urine culture 06/02 <10,000 and 03/04 noted no growth. In office urinalysis results reviewed with the patient today negative leukocytes, negative nitrates, pH 7.5, negative micro scopic hematuria. PVR 0 mL. We discussed at length potential causes for lower urinary tract symptoms patient is experiencing. She denies any bowel issues and reports to be having regular bowel movements daily. Discussed obtaining retroperitoneal ultrasound for further assessment evaluation. She currently denies any UTI like symptoms and or bothersome urinary issues. She denies urinary urgency, urinary frequency, incontinence, nocturia, hematuria, dysuria, foul smelling urine, changes to urinary stream, flank pain, fever, and or chills. Discussed obtaining retroperitoneal ultrasound for further assessment evaluation. She otherwise offers no other issues or concerns at this time. [facility] Medical History Bipolar II disorder Epilepsy Seizure Surgical History Hx of appendectomy Family History Sister Asthma Mental disorder Father Mental disorder Atrial fibrillation Mother Mental disorder Social History Household Members: Family Household Members Other:: dad and stepmom Housing: House Alcohol intake: former Patient Tobacco Use Status: Never used Tobacco e-Cigarette/Vaping Use: Never Used Second Hand Smoke Exposure: No service: No Current occupational status: employed Current occupation: rt hand/information receptionist Current occupational exposures/hazards: No Cognitive needs: No Hearing needs: No Vision needs: Yes Review of Systems Const All systems reviewed & are unremarkable except as noted in HPI and below Physical Exam Const General: cooperative, healthy appearing, comfortable, no acute distress, well developed, alert and awake Orientation/consciousness: patient oriented x3 Limitations: no limitations HEENT Head: Yes normal to inspection, Yes normocephalic and Yes atraumatic Ears: hearing grossly normal bilaterally Eyes General: appearance normal, both eyes and all related structures Neck Neck: Yes normal visual inspection and Yes trachea midline Chest Chest palpation & inspection: normal inspection of the chest Resp Effort & Inspection: normal respiratory effort and able to speak in complete sentences Cardio Rate: regular rate GI Inspection: Yes normal to inspection General: Yes no CVA tenderness Back/Spine/Pelvis Back: no CVA tenderness Skin General skin exam: no rashes or lesions noted Neuro General: patient oriented x3 Extrem General: Yes normal to inspection Psych Appearance: grossly normal and well kempt Mental Status: mental status grossly normal Speech and movement: Normal speech and movement present and Clear speech present Affect: normal affect Attitude: cooperative Thought process: Normal thought process present Thought content: Normal thought content present Insight: Fair insight present (Psych) Judgement: Fair judgement present (Psych) Office Procedures Post Void Residual Post Residual Void Post Void Residual (PVR): 0 [id number] Void Residual by ultrasound Results AMB Urinalysis, Automated UA Leukoctes 0 Na/uL Last Edit by Angela Monroe on 04/27/24 14:31 UA Nitrite Last Edit by Angela Monroe on 04/27/24 14:31 UA Urobilinogen 0.2 mg/dL Last Edit by Angela Monroe on 04/27/24 14:31 UA Protein 0 mg/dL Last Edit by Angela Monroe on 04/27/24 14:31 UA pH 7.5 Last Edit by Angela Debbiesolis on 04/27/24 14:31 UA Blood 0 Dmitry/uL Last Edit by Angela Monroe on 04/27/24 14:31 UA Specific [place] 1.015 Last Edit by Angela Monroe on 04/27/24 14:31 UA Ketone Last Edit by Angela Monroe on 04/27/24 14:31 UA Bilirubin 0 mg/dL Last Edit by Angela Monroe on 04/27/24 14:31 UA Glucose 0 mg/dL Last Edit by Angela Monroe on 04/27/24 14:31 Results Reviewed Results Reviewed: Laboratory Last Values Urine pH (Auto) 7.5 04/27/24 14:30 Specific [place] (Auto) 1.015 04/27/24 14:30 Urine Protein (Auto) 0 mg/dL 04/27/24 14:30 Glucose (UA)(Auto) 0 mg/dL 04/27/24 14:30 Urine Blood (Auto) 0 Dmitry/uL 04/27/24 14:30 Urine Bilirubin (Auto) 0 mg/dL 04/27/24 14:30 Urine Urobilinogen (Auto) 0.2 mg/dL 04/27/24 14:30 Leukocyte Esterase (Auto) 0 Na/uL 04/27/24 14:30 Assessment & Plan Assessment & Plan (1) Recurrent UTI: Code(s): N39.0 - Urinary tract infection, site not specified Category: Medical (2) Lower urinary tract symptoms: Code(s): R39.9 - Unspecified symptoms and signs involving the genitourinary system Category: Medical Plan In office urinalysis results reviewed with the patient today; as noted above. PVR 0 mL. Will obtain retroperitoneal ultrasound for assessment evaluation. We discussed at length potential causes for lower urinary tract symptoms patient is experiencing. Discussed UTI prevention with D mannose supplement, vitamin-C, increasing fluid intake, behavioral therapy with timed voiding, perineal hygiene and postcoital voiding, and management of constipation with stool softeners and increased fiber intake. Discussed possible near future in office cystoscopy and or microgen. Follow-up in 1-3 months with imaging to be completed prior; or sooner with any issues, concerns, and or questions. Orders: Orders AMB Post Void Residual by ultrasound Today N39.0 - Urinary tract infection, site not specified AMB Urinalysis Automated Today Z13.9 - Encounter for screening, unspecified US retroperitoneal comp Today N39.0 - Urinary tract infection, site not specified, R39.9 - Unspecified symptoms and signs involving the genitourinary system Patient Instructions: The patient had an opportunity to ask questions regarding the treatment plan. All questions were answered. Physical exam, labs, and imaging were discussed and reviewed in detail. As well as risks, benefits, and discussion of treatment choices. No major barriers to understanding were identified. The patient expressed understanding and agreement with the above treatment plan. The patient was made aware they should contact our office by phone for worsening of their current condition, the appearance of new symptoms, or with any questions or concerns. Compliance is encouraged with any medications and follow up testing that is ordered. It is a privilege to be allowed the opportunity to participate in? your urological care.? Again, if you have any questions or concerns If you have any questions or concerns please do not hesitate to contact me. The office is [phone]. This note is constructed using voice recognition software. While every effort has been made to ensure accuracy handmade tile artist errors may have been included. Yours sincerely, TIFFANIE Meeks Coding Level of Care Code New Pt Level 3 (98010) Diagnoses Recurrent UTI N39.0 Lower urinary tract symptoms R39.9 CPT Codes Post Residual Void - PVR CPT Code: 01851-[id number] Void Residual by ultrasound ([id number])
== END 2024-04-27 14:41 | disposition home or self-care (01) ==
PROVIDERS: PCP Internal Medicine; Visit Provider Nurse Practitioner Family
DX: N39.0 Urinary tract infection, site not specified (principal); R39.9 Unspecified symptoms and signs involving the genitourinary system; Z13.9 Encounter for screening, unspecified
CPT/HCPCS: 99203

== ENCOUNTER 2024-07-13 13:46 | Outpatient (REF) | payer BC, SELFPAY ==
--- OUTSIDE RECORDS SUMMARY | 2024-07-13 16:36 | XMS_ITS | Continuity of Care Document ---
Author Organization [facility]. If a dditional information is needed, contact Health Information Management at [phone] Address [address] [place] [address] Phone
[2024-07-13 18:09] LABS: Influenza A PCR NEGATIVE (Negative); Influenza B PCR POSITIVE (Negative); Resp Syncy Virus RNA Qual PCR NEGATIVE (Negative); SARS COV2 PCR INHOUSE NEGATIVE (Negative)
== END 2024-07-13 13:47 | disposition home or self-care (01) ==
LOC: HO.LAB 13:46
PROVIDERS: Physician Assistant; PCP Internal Medicine
DX: J18.9 Pneumonia, unspecified organism (principal)
CPT/HCPCS: 0241U

== ENCOUNTER 2024-07-13 13:46 | Outpatient (AMB) | payer BC, SELFPAY ==
--- NOTE | 2024-07-13 14:43 | MHC.OFFWIV ---
Intake Vital Signs 07/13/24 14:45 Weight 110 lb BP 108/60 Blood Pressure Location Rt brachial Position Sitting Pulse 94 Pulse Source Pulse Oximeter Temp 99.8 F Temp Source Oral Pulse Oximetry (%) 99 Oxygen Delivery Method Room Air Intake Visit Reasons: EP-cough, fever, dizziness, sinus pressure Intake Note: Patient here for fever, headache, cough and sinus pressure that has been present since yesterday. Patient Tobacco Use Status: Never used Tobacco Allergies No Known Allergies Allergy (Verified 07/13/24 14:46) Do you need a note to return to daycare/school/sports/work: Yes HPI HPI Comments History of Present Illness Details History - The patient is a 23-year-old female presenting with a persistent cough and symptoms suggestive of infection. - She reports a cough lasting for approximately two months following a diagnosis of bronchial infection. No antibiotics were initially prescribed. - Over the recent two days, she developed additional symptoms including fever, headache, body aches, runny nose, and clinically significant sinus pressure. - She is uncertain of her highest fever but notes alternating chills and sweating. - Medications used include Mucinex and Advil, with partial relief of fever noted. - No personal history of asthma or COPD is present; however, recent episodes of shortness of breath and wheezing are noted. - She admitted prior use of a family member's inhaler during acute episodes. - Although no ear pain is reported, the patient noted increased sensation of ear fullness and nasal discharge. Physical Exam General: Cooperative, healthy appearing, comfortable and no acute distress Orientation/consciousness: Patient oriented x3 Limitations: No limitations Head: Normal to inspection Ears: Hearing grossly normal bilaterally, external ears normal and TM's normal bilaterally Nose: Normal external nose present, Normal nares present and No nasal discharge present Face and sinus: Normal facial exam and Sinuses tender Mouth: Normal oral and palatal mucosa present and moist mucous membranes Throat: Yes tonsils normal, Yes uvula midline. Throat is pretty red, no exudates Eyes: Appearance normal, both eyes and all related structures Neck: Normal visual inspection Respiratory: Clear to auscultation bilaterally. Normal respiratory effort, able to speak in complete sentences, Actively coughing, no respiratory distress, not tachypneic, no tripod positioning and no use of accessory muscles Cardiovascular: Regular rate and rhythm. Normal S1 and S2 Skin: No rashes or lesions noted Neuro: Patient oriented x3 Extremities: Normal to inspection and Yes no clubbing, cyanosis or edema PFSH Medical History Bipolar II disorder Epilepsy Seizure Surgical History Hx of appendectomy Family History Sister Asthma Mental disorder Father Mental disorder Atrial fibrillation Mother Mental disorder Social History Household Members: Family Household Members Other:: dad and stepmom Housing: House Alcohol intake: former Patient Tobacco Use Status: Never used Tobacco e-Cigarette/Vaping Use: Never Used Second Hand Smoke Exposure: No service: No Current occupational status: employed Current occupation: rt hand/receptionist telephone operator Current occupational exposures/hazards: No Cognitive needs: No Hearing needs: No Vision needs: Yes Review of Systems Const All systems reviewed & are unremarkable except as noted in HPI and below Physical Exam Vital Signs: Last Vital Signs Temp 99.8 F 07/13/24 14:45 Pulse 94 07/13/24 14:45 BP 108/60 07/13/24 14:45 Pulse Ox 99 07/13/24 14:45 Oxygen Delivery Method Room Air 07/13/24 14:45 Assessment & Plan Assessment & Plan (1) Atypical pneumonia: Code(s): J18.9 - Pneumonia, unspecified organism Plan: Clinical diagnosis atypical pneumonia as the patient's symptoms suggest it, with Mycoplasma pneumoniae as a possible causative agent. Azithromycin Z-Rebel is prescribed, acknowledging its antibiotic and anti-inflammatory benefits, which should help alleviate respiratory symptoms. Awaiting pending test results for flu, COVID-19, and RSV to exclude viral etiologies. A prescription for a rescue inhaler is provided to help manage wheezing and shortness of breath. Continued use of Mucinex is suggested for mucolytic support. Follow-up contact will inform necessary adjustments based on test outcomes. Patient was informed and verbally consented to the use of an ambient scribe for clinic note documentation during this visit Orders: Orders SARS-CoV2/FLU/RSV Today R39.9 - Unspecified symptoms and signs involving the genitourinary system Medications: New azithromycin For 250 mg dose pack: take 500 mg today (day 1), then 250 mg for 4 days (days 2-5) PO 6 tabs 0RF albuterol sulfate 90 mcg/actuation 2 puffs inhalation Q6H PRN 8.5 grams 0RF shortness of breath or wheezing or cough Coding Level of Care Code Est Pt Level 4 (84781) Diagnoses Atypical pneumonia J18.9
[2024-07-13 14:45] VITALS: BP 108/60; PULSE 94; TEMP 37.7; O2SAT 99
== END 2024-07-13 15:09 | disposition home or self-care (01) ==
PROVIDERS: PCP Internal Medicine; Visit Provider Physician Assistant
DX: J18.9 Pneumonia, unspecified organism (principal)

== ENCOUNTER 2025-05-01 08:35 | Outpatient (AMB) | payer BC, SELFPAY ==
--- OUTSIDE RECORDS SUMMARY | 2024-05-25 11:58 | XMS_ITS | Encounter Summary ---
Author Organization [facility] Address [address] [place] [id number] Phone Care Team Providers Care Bath Steward/Stewardess Name Role Phone Danae Lawton MD Primary Care Provid er Encounter Details Date Type Department Care Team (Late st Contact Info) Description 05/25/2024 10:58 AM EST Hospital Encounter [facility] [address] [place] [id number] Rafia Hannon, VOLLEYBALL ASSISTANT COACH [address] [place] [address] [email or web address] Social History Tobacco Use Types Packs/Day Years Used Date Smoking Tobacco: Never Smokeless Tobacco: Never Education Answer Date Recorded Are you interested in more education? Not on judith e 11/07/2022 Are you concerned about learning? Not on file 11/07/2022 No 11/07/2022 No 11/07/2022 Digital Access Answer Date Recorded No 12/06/2022 No 12/06/2022 Reliable internet access at home? Not on file 12/06/2022 Device with a working camera? Not on file Comments Unknown Sex and Gender Information Value Date Recorded Sex Assigned at Not on file Legal Sex Female 12:12 PM EST Gender Identity Not on file Sexual Orientation Not on file documented as of this encounter Plan of Treatment Not on file documented as of this encounter Procedures Procedure Name Priority Date/Time Associated Diagnosis Comments XR CHEST PA AND LATERAL 2 VIEWS Urgent/patient waiting 05/25/2024 11:02 AM EST Acute cough documented in this encounter Results * XR CHEST PA AND LATERAL 2 VIEWS (05/25/2024 11:02 AM EST) Anatomical Region Laterality Modality Chest Computed Radiogr aphy 05/25/2024 11:2 9 AM EST Impressions 05/25/2024 11:29 AM EST No pneumonia or acute cardiopulmonary process. Narrative 05/25/2024 11:29 AM EST XR CHEST PA AND LATERAL 2 VIEWS Referring clinician's provided indication for this examination in Epic: Cough COMPARISON: None. FINDINGS: Devices/Tubes/Lines: None. Lungs: No focal consolidation or pulmonary edema. Pleura: No pleural effusion or pneumothorax. Heart/Mediastinum: Normal cardiac silhouette. Normal mediastinal contours. Bones/Soft Tissues: No acute osseous abnormality. Procedure Note Dewey Fonseca MD - 05/25/2024 XR CHEST PA AND LATERAL 2 VIEWS Referring clinician's provided indication for this examination in Epic:Cough COMPARISON: None. FINDINGS: Devices/Tubes/Lines: None. Lungs: No focal consolidation or pulmonary edema. Pleura: No pleural effusion or pneumothorax. Heart/Mediastinum: Normal cardiac silhouette. Normal mediastinalcontours. Bones/Soft Tissues: No acute osseous abnormality. IMPRESSION: No pneumonia or acute cardiopulmonary process. Rafia Hannon VOLLEYBALL ASSISTANT COACH IMG XR CHEST Final R esult documented in this encounter Visit Diagnoses Not on filedocumented in this encounter Care Teams Bath Steward/Stewardess Relationship Specialty Start Date End Date Danae Lawton MD [address] [place] [address] PCP - General Internal Medicine 05/25/24 documented as of this encounter Additional Source Comments The information contained in this document represents components of the legal health record. It is not the complete legal health record.[facility]
[2025-05-01 08:38] VITALS: BP 120/72; PULSE 73; TEMP 36.1; O2SAT 100; BMI 18.6
--- NOTE | 2025-05-01 08:38 | A.OFFPC_ITS ---
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 Accompanied by: Self / Same As Patient Allergies No Known Allergies Allergy (Verified 05/01/25 08:56) Medication List - Last Reconciled 05/01/25 by Danae Beltran MD albuterol sulfate 90 mcg/actuation 2 puffs inhalation Q6H PRN azithromycin For 250 mg dose pack: take 500 mg today (day 1), then 250 mg for 4 days (days 2-5) PO duloxetine 60 mg PO DAILY 90 days duloxetine 30 mg PO DAILY 90 days zonisamide 100 mg PO BID Tobacco use date assessed: 05/01/25 Dental Screening Dental Screen Date: 05/01/25 Did you have a dental visit in the last 12 months?: Yes Did you have a dental problem in the last 6 months where you did not have access to dental care?: No Was dental information given to patient?: Patient has dentist HPI HPI Comments History of Present Illness Details The patient is a 24-year-old female presenting with a physical examination and sinus issues. The patient reports chronic sinusitis, characterized by an inability to breathe properly, which has persisted for several years. She has been using nasal strips and saline spray for symptomatic relief, but these measures are insufficient. The condition is suspected to be related to a deviated nasal septum, a condition also present in her family. The patient has a history of depression, for which she is currently taking duloxetine 60 mg daily. She experienced withdrawal symptoms when her prescription was altered, highlighting her reliance on the medication. She does not currently follow with psychiatry due to systemic healthcare issues. The patient also reports a history of migraines, previously managed with Botox injections, which are no longer available at her current facility. She has been referred to another neurology center for further management. She also has history of epilepsy. The patient has epilepsy and is under the care of a neurologist. She reports dissatisfaction with her current neurologic care due to scheduling issues and lack of communication. In terms of family history, her mother has a mental disorder, and her father has atrial fibrillation. She has undergone an appendectomy in the past. The patient denies smoking and reports minimal alcohol consumption. Her last blood work was normal, and she has an upcoming Pap smear scheduled. [facility] Medical History (Updated 05/01/25 @ 09:44 by Danae Beltran MD) Screen for STD (sexually transmitted disease) Screening for STD (sexually transmitted disease) UTI (urinary tract infection) Recurrent UTI Lower urinary tract symptoms Sore throat (viral) Strep throat Chronic cough Atypical pneumonia Epilepsy Bipolar II disorder Seizure Surgical History Hx of appendectomy Family History Sister Asthma Mental disorder Father Mental disorder Atrial fibrillation Mother Mental disorder Social History Household Members: Family Household Members Other:: dad and stepmom Housing: House Alcohol intake: former Patient Tobacco Use Status: Never used Tobacco e-Cigarette/Vaping Use: Never Used Second Hand Smoke Exposure: No service: No Current occupational status: employed Current occupation: rt hand/part time receptionist Current occupational exposures/hazards: No Cognitive needs: No Hearing needs: No Vision needs: Yes Questionnaire PHQ-9 Over the last 2 weeks, how often have you been bothered by any of the following problems? 1. Little interest or pleasure in doing things: more than half the days 2. Feeling down, depressed, or hopeless: several days 3. Trouble falling or staying asleep, or sleeping too much: more than half the days 4. Feeling tired or having little energy: nearly every day 5. Poor appetite or overeating: nearly every day 6. Feeling bad about yourself - or that you are a failure or have let yourself or your family down: more than half the days 7. Trouble concentrating on things, such as reading the newspaper or watching television: nearly every day 8. Moving or speaking so slowly that other people could have noticed. Or the opp osite - being so fidgety or restless that you have been moving around a lot more than usual: nearly every day 9. Thoughts that you would be better off or of hurting yourself in some way: not at all Total score: 19 Depression Screening Interpretation: Positive (no suicidal thoughts) Depression Screening Follow-up: Existing condition, In treatment, Change in Medication and Follow-up Visit Requested Depression Screening Done: Yes 93819 - PHQ-9 Billing: Yes Source: Developed by Drs. Osei Suarez, Sheeba Walters, Jeovanny Fournier and colleagues, with an educational precious from [employer]. Thrive Questionnaire Date Thrive assessed: 05/01/25 I am a: Patient What is your living situation today?: I have a steady place to live Within the past 12 months, did the food you bought not last and you didn't have the money to get more?: I choose not to answer this question Within the past 12 months, did you worry whether your food would run out before you got money to buy more?: I choose not to answer this question Do you have trouble paying for medicines?: Yes Do you have trouble getting transportation to medical appointments?: Yes Do you have trouble paying your heating and electricity bill?: I choose not to answer this question Do you have trouble taking care of your child, family member or friend?: I choose not to answer this question Do you have trouble with day-to-day activities such as bathing, preparing meals, shopping, managing finances, etc.?: I choose not to answer this question Are you currently unemployed and looking for a job?: I choose not to answer this question Are you interested in more education?: No Please select the resources that you would like help with: Paying for medicine Currently or been in a relationship where the following occur: No concerns reported THRIVE Score: 1 AUDIT C Alcohol Use Questionnaire (AUDIT-C) 1. How often do you have a drink containing alcohol?: Monthly or less 2. How many drinks containing alcohol do you have on a typical day when you are drinking?: 1 or 2 3. How often do you have six or more drinks on one occasion?: Never Total Score: 1 Score Reviewed/Action Taken: No AMERICA-7 AMB Questionnaire AMERICA-7 Date AMERICA - 7 assessed: 05/01/25 Feeling nervous, anxious, or on edge: 3 = Nearly every day Not being able to stop or control worryin = Nearly every day Worrying too much about different things: 3 = Nearly every day Trouble relaxin = More than half the days Being so restless that it is hard to sit still: 2 = More than half the days Becoming easily annoyed or irritable: 1 = Several days Feeling afraid as if something awful might happen: 2 = More than half the days Total AMERICA-7 score (0-4 normal; 5-9 mild; 10-14 moderate; 15-21 severe): 16 Source: Developed by Drs. Osei Suarez, Sheeba Walters, Jeovanny Fournier and colleagues, with an educational precious from [employer]. AMERICA-7 Assessment Billing AMERICA-7 Assessment Tool: AMERICA-7 Assessment 71621 Review of Systems Const All systems reviewed & are unremarkable except as noted in HPI and below Card Denies chest pain at rest, Denies chest pain with activity, Denies edema, Denies irregular heart rhythm, Denies claudication, Denies dyspnea, Denies dyspnea on exertion, Denies orthopnea, Denies paroxysmal nocturnal dyspnea and Denies slow heart rate Resp Denies cough, Denies dyspnea and Denies dyspnea on exertion GI Denies abdominal pain, Denies change in bowel habits, Denies excessive flatus, Denies nausea and Denies vomiting Physical exam (Primary Care) Vital Signs: Last Vital Signs Temp 97.0 F 05/01/25 08:38 Pulse 73 05/01/25 08:38 BP 120/72 05/01/25 08:38 Pulse Ox 100 05/01/25 08:38 Oxygen Delivery Method Room Air 05/01/25 08:38 BMI result Body Mass Index 18.6 Tobacco/Smoking Status: Tobacco use Status Tobacco use date assessed 05/01/25 05/01/25 08:41 Patient Tobacco Use Status Never used Tobacco 05/01/25 08:41 Tobacco use type 11/09/23 17:20 e-Cigarette/Vaping Use Never Used 05/01/25 08:41 PHQ-9: PHQ-9 Score PHQ-9: Total score 19 05/01/25 08:41 Depression Screening Interpretation: Positive (no suicidal thoughts) Depression Screening Follow-up: Existing condition, In treatment, Change in Medication and Follow-up Visit Requested Thrive Assessment: Date of Thrive Assessment Date Thrive assessed 05/01/25 05/01/25 08:41 Currently or been in a relationship where the following occur: No concerns reported HENMT Head: Yes normal to inspection, Yes normocephalic and Yes atraumatic Ears: external ears normal Eyes General: appearance normal, both eyes and all related structures Eyelids: Yes eyelids normal Conjunctivae: conjunctivae normal Neck Neck: Yes normal visual inspection and Yes supple Resp Effort & Inspection: normal respiratory effort Auscultation: clear to auscultation bilaterally Cardio Jugular venous distension: no JVD Rate: regular rate Rhythm: regular rhythm Heart sounds: S1 normal heart sound present and S2 normal heart sound present GI Inspection: Yes normal to inspection Palpation (GI): Soft to palpation and nontender Auscultation: normal bowel sounds Skin General skin exam: no rashes or lesions noted Neuro General: no focal motor deficits Extrem General: Yes full ROM Psych Appearance: grossly normal Coding Level of Care Code Est Pt Level 3 (81466) Est Pt Prev Care 18-39y(24816) Diagnoses Physical exam Z00.00 Epilepsy G40.909 Migraines G43.909 Chronic sinusitis J32.9 Bipolar depression F31.9 Additional Codes AMERICA-7 Assessment Billing - AMERICA-7 Assessment Tool: AMERICA-7 Assessment 54249 ([id number]) PHQ-9 - 86680 - PHQ-9 Billing: Yes ([id number]) Time Spent (min) 35 Assessment & Plan Assessment & Plan (1) Physical exam: Code(s): Z00.00 - Encounter for general adult medical examination without abnormal findings Category: Medical (2) Epilepsy: Code(s): G40.909 - Epilepsy, unspecified, not intractable, without status epilepticus Category: Medical (3) Migraines: Code(s): G43.909 - Migraine, unspecified, not intractable, without status migrainosus Category: Medical (4) Chronic sinusitis: Code(s): J32.9 - Chronic sinusitis, unspecified Category: Medical (5) Bipolar depression: Code(s): F31.9 - Bipolar disorder, unspecified Category: Medical Plan Plan 1. Encounter for general adult medical examination without abnormal findings Z00.00 Repeat in a year. Declines flu vaccine. 2. Bipolar disorder, current episode depressed, moderate F31.32 HCC 59 The patient is currently on duloxetine 60 mg daily for depression, with a history of withdrawal symptoms when the dosage was altered. She does not follow with psychiatry due to systemic healthcare issues, but a referral to a psychiatric provider was discussed. 3. Chronic sinusitis, unspecified J32.9 The patient reports chronic nasal congestion and difficulty breathing, suspected to be due to a deviated nasal septum. Referral to an ear, nose, and throat specialist was discussed, along with the use of Flonase nasal spray for symptom management. 4. Migraine, unspecified, not intractable, without status migrainosus G43. 909 The patient has a history of migraines previously managed with Botox injections, which are no longer available at her current facility. Referral to a neurology center for further management was discussed. 5. Epilepsy, unspecified, not intractable, without status epilepticus G40.909 HCC 79 The patient is under the care of a neurologist for epilepsy but reports dissatisfaction with her current care due to scheduling issues and lack of communication. Continuation of neurologic care and comparison of services at a new facility were discussed. Orders: Referrals Ear/Nose/Throat Referral J32.9 - Chronic sinusitis, unspecified Psychiatry Referral F31.9 - Bipolar disorder, unspecified, F41.1 - Generalized anxiety disorder Neurology Referral G40.909 - Epilepsy, unspecified, not intractable, without status epilepticus, G43.909 - Migraine, unspecified, not intractable, without status migrainosus Medications: New fluticasone propionate 50 mcg/actuation (Flonase Allergy Relief) administer into each nostril 1 spray intranasal BID 30 days 16 grams 6RF J32.9 - Chronic sinusitis, unspecified fluticasone propionate 50 mcg/actuation (Flonase Allergy Relief) administer into each nostril 1 spray intranasal BID 16 grams 6RF 30 days J32.9 - Chronic sinusitis, unspecified Refilled duloxetine 60 mg PO DAILY 90 days 90 caps 2RF duloxetine 60 mg PO DAILY 90 caps 2RF 90 days Discontinued azithromycin Discontinued Reason: Patient Completed Course For 250 mg dose pack: take 500 mg today (day 1), then 250 mg for 4 days (days 2-5) PO 6 tabs 0RF duloxetine Discontinued Reason: Patient Completed Course 30 mg PO DAILY 90 days 90 caps 1RF
--- OUTSIDE RECORDS SUMMARY | 2025-05-01 08:54 | XMS_ITS | Clinical Summary ---
Author Organization [facility] spital Address [address] [place] [address] Phone Care Team Providers Care Reporting Developer Name Role Phone Jose Gerard MD Unavailable Jose Gerard MD Primary Care Provider [phone] Jose Gerard MD Unavailable [phone] Medications copper (ParaGard T 380A) 380 square mm IUD Entered: 12/19/18 10:22:14 EDT 12/19/2018 Active Social History Tobacco Use Types Packs/Day Years Used Date Smoking Tobacco: Never Assessed Comments Unknown Sex and Gender Information Value Date Recorded Sex Assigned at Not on file Legal Sex Female 12:34 AM EDT Gender Identity Not on file Sexual Orientation Not on file Last Filed Vital Signs Vital Sign Reading Time Taken Comments Blood Pressure - - Pulse - - Temperature - - Respiratory Rate - - Oxygen Saturation - - Inhaled Oxygen Concentration - - Weight 48.7 kg (107 lb 5.8 oz) 06/10/2020 3:38 P M EST Height 161.5 cm (5' 3.58 ) 07/20/2019 11:[address] Body Mass Index 18.67 07/20/2019 11:12 AM EST Plan of Treatment Not on file Care Teams Reporting Developer Relationship Specialty Start Date End Date Jose Gerard MD [address] [place] [address] PCP - Insurance PCP 11/28/19 Jose Gerard MD [address] [place] [address] PCP - General 10/10/18 Jose Gerard MD [address] [place] [id number] PCP - Clinical PCP 10/10/18
--- OUTSIDE RECORDS SUMMARY | 2025-05-01 08:54 | XMS_ITS | Clinical Summary ---
Author Organization [facility] Address [address] [place] [id number] Phone Care Team Providers Care Brim Pouncer Name Role Phone Danae Lawton MD Primary Care Provid er Allergies No known active allergies Medications zonisamide (ZONEGRAN) 100 MG capsule TAKE THREE CAPSULES BY MOUTH EVERY DAY 4 Active DULoxetine (CYMBALTA) 60 MG capsule Take 1 capsule by mouth every morning. 4 Active nitrofurantoin macrocrystaL (MACRODANTIN) 100 MG capsule TAKE ONE CAPSULE BY MOUTH TWICE A DAY FOR 5 DAYS. TAKE WITH A MEAL OR FOOD 4 Active Immunizations Immunization Administration Dates Next Due Hepatitis A, ped/adol, 2 dose 02/08/2017 Meningococcal MCV4O 02/08/2017 Social History Tobacco Use Types Packs/Day Years [...] Sign Reading Time Taken Comments Blood Pressure 110/75 05/25/2024 10:38 AM EST Pulse 84 05/25/2024 10:38 AM EST Temperature 36.8 C (98.2 F) 05/25/2024 10:38 AM EST Respiratory Rate 18 05/25/2024 10:38 AM EST Oxygen Saturation 100% 05/25/2024 10:38 AM EST Inhaled Oxygen Concentration - - Weight - - Height - - Body Mass Index - - Plan of Treatment Health Maintenance Due Date Last Done Comments Adult Td,Tdap Booster 2000 DEPRESSION SCREENING 2012 HPV VACCINES (1 - 3-dose series) 2015 CHLAMYDIA SCREENING 2016 HEPATITIS A VACCINES (2 of 2 - 2-dose series) 08/11/2017 02/08/2017 HEPATITIS C SCREENING 2018 HIV ONE-TIME SCREENING (18-6 5 YEARS) 2018 PAP SMEAR 2021 INFLUENZA VACCINE (#1) 2025 COVID-19 VACCINE (3 - 2024-2 6 season) 2025 11/29/2020, 11/08/2020 SMOKING Hx and SMOKELESS TOBACCO SCREENING 05/25/2025 05/25/2024 MENINGOCOCCAL VACCINES (ACWY) Completed 02/08/2017 HIB VACCINES Aged Out No longer eligi ble based on patient's age to complete this topic MENINGOCOCCAL VACCINES (B) Aged Out N o longer eligible based on patient's age to complete this topic PNEUMOCOCCAL VACCINES (0-49 years) Aged Out No longer eligible b ased on patient's age to complete this topic Medical Devices Not on file Insurance [facility] PPO [facility] OUT OF STATE PPO [facility] OUT OF STATE PPO Care Teams Brim Pouncer Relationship Specialty Start Date End Date Danae Lawton MD [address] [place] [address] PCP - General Internal Medicine 05/25/24 Additional Source Comments The information contained in this document represents components of the legal health record. It is not the complete legal health record.[facility]
== END 2025-05-01 09:13 | disposition home or self-care (01) ==
LOC: HO.HMCH 08:36
PROVIDERS: PCP Internal Medicine; Visit Provider Internal Medicine
DX: Z00.00 Encounter for general adult medical examination without abnormal findings (principal); J32.9 Chronic sinusitis, unspecified; G40.909 Epilepsy, unspecified, not intractable, without status epilepticus; F31.9 Bipolar disorder, unspecified; G43.909 Migraine, unspecified, not intractable, without status migrainosus

== ENCOUNTER → 2025-05-01 08:35 | Outpatient (BNVA) | payer BC, SELFPAY | PROVIDERS: PCP Internal Medicine; Visit Provider Internal Medicine | DX: Z00.00 Encounter for general adult medical examination without abnormal findings (principal); G43.909 Migraine, unspecified, not intractable, without status migrainosus; G40.909 Epilepsy, unspecified, not intractable, without status epilepticus; J32.9 Chronic sinusitis, unspecified; F31.32 Bipolar disorder, current episode depressed, moderate; F41.1 Generalized anxiety disorder; F31.9 Bipolar disorder, unspecified; Z79.899 Other long term (current) drug therapy | CPT/HCPCS: 96127 ==